=== PATIENT | female | born 1945 | race Caucasian/White ===

== ENCOUNTER 2021-03-24 02:54 | Inpatient (IN) | payer MEDICARE, OTHER ==
[~2021-03-24] VITALS: Ht 157 cm; Wt 47.4 kg
[2021-03-24 04:42] LABS: ABG BASE EXCESS 4.1 MMOL/L (-2.5-2.5); ABG OXYGEN SATURATION 99 % (94-100); ABG PCO2 71 MMHG (35-45); ABG PH 7.26 (7.37-7.43); ABG PO2 271 MMHG (79-93); ABG TCO2 32.8 MMOL/L (21.0-31.0)
[2021-03-24 04:45] LABS: ALLENS TEST ART LINE
[2021-03-24] MEDS ORDERED: PATIENT MAY USE OWN MEDS, ALL PO SCH (05:00)
--- NOTE | 2021-03-24 05:03 | Consultation-Cardiology ---
HPI-Cardiology Cardiology Consultation Date of Consultation 03/24/21 Date of Admission Time Seen by Provider: 04:57 Indication: Acute respiratory failure HPI 76-year-old lady with a history of COPD, anxiety, multiple admissions in the past in [facility] has been having increasing shortness of breath, cough. Went to the emergency room and noted to have EKG changes suggestive of myocardial infarction. She had a Covid test yesterday and it was negative. I was contacted and accepted her for emergency cardiac catheterization. On arrival she was severely short of breath. No active chest pain. No palpitation, reporting that she had a cardiac catheterization about 2 years ago in [facility] and it was normal. Home Medications & Allergies Allergies: Coded Allergies: No Known Drug Allergies (Unverified , 03/24/21) Home Medication List Reviewed: Yes PWS-Wdgldt-Ogsdzg Hx Patient Social History Employed/Student: retired Past Medical History Discussed below Family Medical History Family Medical Hx Noncontributory Review of Systems-General Review of Systems Constitutional: see HPI, malaise, weakness EENTM: see HPI, no symptoms reported Respiratory: see HPI, cough, dyspnea on exertion, orthopnea, short of breath Cardiovascular: see HPI; No chest pain, No edema, No Hx of Intervention, No palpitations, No syncope, No vascular heart diseas, No other Gastrointestinal: no symptoms reported, see HPI Genitourinary: no symptoms reported, see HPI Musculoskeletal: no symptoms reported, see HPI Skin: no symptoms reported, see HPI Psychiatric/Neurological: No Symptoms Reported, See HPI Reviewed Test Results Reviewed Test Results Lab Laboratory Tests Test 03/24/21 04:40 Range/Units Blood Gas Puncture Site SAMPLE SELECTOR Blood Gas Patient Temperature NA Arterial Blood pH 7.26 *L 7.37-7.43 Arterial Blood Partial Pressure CO2 71 *H 35-45 MMHG Arterial Blood Partial Pressure O2 271 H 79-93 MMHG Arterial Blood HCO3 31 H 23-27 MMOL/L Arterial Blood Total CO2 32.8 H 21.0-31.0 MMOL/L Arterial Blood Oxygen Saturation 99 94-100 % Arterial Blood Base Excess 4.1 H -2.5-2.5 MMOL/L Man Test ART LINE Blood Gas Ventilator Setting NA Blood Gas Inspired Oxygen NA Physical Exam Physical Exam Vital Signs Capillary Refill : Height, Weight, BMI Height: '" Weight: lbs. oz. kg; BMI Method: General Appearance: No Apparent Distress, WD/WN Eyes: Bilateral Eye Normal Inspection, Bilateral Eye PERRL, Bilateral Eye EOMI HEENT: PERRL/EOMI, TMs Normal, Normal ENT Inspection, Pharynx Normal, Moist Mucous Membranes Neck: Full Range of Motion, Normal Inspection, Non Tender, Supple, Carotid Bruit Respiratory: Normal Breath Sounds, No Accessory Muscle Use, No Respiratory Distress, Decreased Breath Sounds Cardiovascular: Regular Rate, Rhythm, No Edema, No Gallop, No JVD, No Murmur, Normal Peripheral Pulses Gastrointestinal: Normal Bowel Sounds, No Organomegaly, No Pulsatile Mass, Non Tender, Soft Back: Normal Inspection, No CVA Tenderness, No Vertebral Tenderness Extremity: Normal Capillary Refill, Normal Inspection, Normal Range of Motion, Non Tender, No Calf Tenderness, No Pedal Edema Neurologic/Psychiatric: Alert, Oriented x3, No Motor/Sensory Deficits, Normal Mood/Affect Skin: Normal Color, Warm/Dry Lymphatic: No Adenopathy A/P-Cardiology Admission Diagnosis Acute respiratory failure Congestive heart failure, acute left ventricular systolic dysfunction, nonischemic cardiomyopathy Coronary artery disease Hypertension Assessment/Plan Acute respiratory failure, acute exacerbation of COPD, CO2 retention. Patient will be managed by color matcher and medical service. EKG changes with ST elevation in the anterolateral leads, mild elevation in troponin. Does not have an acute myocardial infarction. Cardiac catheterization was carried out on March 24, 2021 showing mild coronary artery disease nonobstructive disease with left ventricular apical hypokinesia and ejection fraction 40%. Medical therapy is recommended. Has been maintained on Coreg and losartan as an outpatient which will be restarted. Coronary artery disease, cardiac catheterization on March 24, 2021 showed slow flow in the mid LAD, small vessel disease. 40 to 50% stenosis in the mid right coronary artery nonobstructive disease. Apical left ventricular hypokinesia with ejection fraction 40%, planning to evaluate 2D echo. 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 Hypothyroidism, maintained on levothyroxine Anxiety. Hyperglycemia blood glucose level was 154. Maintained on Accu-Chek, managed by primary care physician MERLIN SALES MD Mar 24, 2021 05:03
--- NOTE | 2021-03-24 05:07 | Conscious Sedation/ASA ---
Conscious Sedation Pre-Proced Time 04:00 ASA Score 3 For ASA 3 and 4: Consider anesthesia and medical clearance. Also, for patients with a history of failed moderate sedation consider anesthesia. Airway Lungs Heart ASA score ASA 1: a normal healthy patient ASA 2: a patient with a mild systemic disease (mid diabetes, controlled hypertension, obesity x ASA 3: a patient with a severe systemic disease that limits activity (angina, COPD, prior Myocardial infarction) ASA 4: a patient with an incapacitating disease that is a constant threat to life (CHF, renal failure) ASA 5: a moribund patient not expected to survive 24 hrs. (ruptured aneurysm) ASA 6: a declared brain- patient whose organs are being harvested. For emergent operations, add the letter E after the classification Mallampati Classification Grade 3 Sedation Plan Analgesia, Amnesia, Plan communicated to team members, Discussed options with patient/fam, Discussed risks with patient/fam The patient is an appropriate candidate to undergo the planned procedure, sedation, and anesthesia. The patient immediately re-assessed prior to indication. MERLIN SALSE MD Mar 24, 2021 05:07
--- NOTE | 2021-03-24 05:18 | Cardiac Cath Report ---
Cardiac Cath Report Physician (s)/Dial Painter (s) Physician MERLIN SALES MD Pre-Procedure Diagnosis Pre-Procedure Diagnosis: Coronary artery disease Post-Procedure Note Procedure Start Date: Mar 24, 2021 Name of Procedure: Left heart catheterization Left ventriculogram Aortic arch angiogram Findings/Procedure Note PROCEDURE NOTE: 76-year-old lady admitted with acute respiratory failure, EKG changes with elevated troponin, suspicious myocardial infarction, emergency cardiac catheterization was advised. After explaining the procedure to the patient, all pros and cons were explained, all questions were answered. The patient signed the consent and then she was placed on the cardiac catheterization laboratory. Groin was prepped SL fashion local anesthesia was used. Sheath placed in the right femoral artery. Juany right and left catheter were used to access the coronary system. Pigtail was used to access the left ventricular cavity. Left ventriculogram was done Aortic arch angiogram was done due to the heavy calcification in the aortic arch and tortuosity of the aortic arch that was noted At the end of the procedure the sheath was removed. Closure device was deployed FINDINGS: Hemodynamics LV 109/24, end-diastolic pressure of 24 Aorta 112/73 mean of 90 ANATOMY: Left Main is free of obstructive disease Left Anterior Descending has slow flow in the midportion, small vessel disease nonobstructive disease Left Circumflex has no significant obstructive disease Right Coronary Artery is large dominant artery with 40 to 50% stenosis at the midportion nonobstructive disease LV Gram was done showing apical hypokinesia, systolic function is reduced estimate ejection fraction 40 to 45% Aorta evaluation showed hypertensive changes in the thoracic aorta with c alcification, there is no dissection or aneurysm, calcification noted at the origin of the brachiocephalic artery, left subclavian and left carotid arteries CONCLUSION: 1. Slow flow in the mid LAD with small vessel disease, 40 to 50% stenosis at the mid right coronary artery nonobstructive disease otherwise no significant obstructive disease 2. Normal left ventricular size with apical hypokinesia, ejection fraction 40 to 45% with elevated left ventricular end-diastolic pressure 3. Hypertensive changes in the thoracic aorta, no dissection or aneurysm DISCUSSION AND RECOMMENDATION: Patient has nonischemic cardiomyopathy, probably Takotsubo cardiomyopathy, medical therapy is recommended. Anesthesia Type: Conscious Sedation Estimated blood loss (mL): 10 ml Contrast Amount: 68 ml Total Radiation Dose: 220 mGy Post-Procedure Diagnosis Post-operative diagnosis: Coronary artery disease Congestive heart failure Acute respiratory failure COPD MERLIN SALES MD Mar 24, 2021 05:17
[2021-03-24] MEDS: NS IV 1000 ML 1,000 ML IV SCH ×2 (05:35→15:41)
[2021-03-24] MEDS: methylPREDNISolone 125 MG (Solu-MEDROL) VIAL IVP SCH ×3 (05:37→19:06)
[2021-03-24 06:06] LABS: HEMATOCRIT 34 % (35-52); HEMOGLOBIN 11.2 g/dL (11.5-16.0); MEAN CORPUSCULAR HEMOGLOBIN 30 pg (25-34); MEAN CORPUSCULAR HGB CONC 33 g/dL (32-36); MEAN CORPUSCULAR VOLUME 92 fL (80-99); MEAN PLATELET VOLUME 9.7 fL (9.0-12.2); PLATELET COUNT 184 10^3/uL (130-400); WHITE BLOOD COUNT 9.6 10^3/uL (4.3-11.0)
[2021-03-24 06:22] LABS: ALBUMIN 3.4 GM/DL (3.2-4.5); POTASSIUM 4.2 MMOL/L (3.6-5.0)
[2021-03-24 06:23] LABS: CALCIUM 8.7 MG/DL (8.5-10.1)
[2021-03-24 06:26] LABS: BILIRUBIN,TOTAL 0.3 MG/DL (0.1-1.0)
[2021-03-24 06:28] LABS: CREATININE SERUM 0.75 MG/DL (0.60-1.30)
[2021-03-24 06:53] LABS: PHOSPHORUS 4.2 MG/DL (2.3-4.7)
[2021-03-24 06:55] LABS: MAGNESIUM 2.1 MG/DL (1.6-2.4)
[2021-03-24 08:55] LABS: BILIRUBIN,URINE NEGATIVE (NEGATIVE); CLARITY,URINE CLEAR; COLOR,URINE YELLOW; GLUCOSE, URINE (UA) NEGATIVE (NEGATIVE); KETONES,URINE NEGATIVE (NEGATIVE); LEUKOCYTE ESTERASE ,URINE NEGATIVE (NEGATIVE); NITRITE,URINE NEGATIVE (NEGATIVE); PROTEIN,URINE 1+ (NEGATIVE)
[2021-03-24 09:06] LABS: BACTERIA,URINE FEW /HPF
[2021-03-24] MEDS: LOSARTAN 50 MG (COZAAR) TAB PO SCH (09:26)
[2021-03-24] MEDS: ASPIRIN E.C. 81 MG (ECOTRIN) TAB PO SCH (09:26)
[2021-03-24] MEDS: ENOXAPARIN 40 MG/0.4 ML (LOVENOX) SYR SQ SCH (09:27)
[2021-03-24] MEDS: LEVOTHYROXINE 75 MCG (LEVOTHROID) TABLET PO SCH (09:27)
[2021-03-24] MEDS: PANTOPRAZOLE 40 MG (PROTONIX) TAB PO SCH (09:27)
--- NOTE | 2021-03-24 10:17 | Tele-ICU Progress Note ---
Subjective Date Seen by a Provider: Mar 24, 2021 Time Seen by a Provider: 08:45 Subjective/Events-last exam This virtual visit was conducted using real time audio/video. Thank you for asking us to see this patient for respiratory insufficiency and suspected CT. Recent events: Cath showed non-obstructive CAD, for medical management. PMH: COPD, anxiety SH: smoking history Y FH: Non-contributory. PE: VSS. O2 sat 100% on 2 LPM NC. HEENT: No obvious masses, adenopathy or JVD. Chest: clear to auscultation. CV: RRR S1 S2 No murmur or added sounds. Abd: Non-tender. Bowel sounds Y. : Unremarkable. Thorpe N. NEWSPAPER MANAGER/psychiatric: Grossly intact. No obvious focal findings. Extremities: No edema. Capillary refill < 3 seconds. Skin: unremarkable. Results: Elevated Troponin 0.718. B.26/71/271 Available chart/ vitals / labs / images reviewed. Video assessment done using teleICU camera, rest of exam as per RN. A/P: Respiratory insufficiency: Continue present management with BDs, NC. OK to transfer. Monitor for increasing oxygenation needs and/or need for intubation. Critical Care: Cont. Medrol, BDs, ASA, Coreg, PPI, Silvana. Discussed with RN Purvi. Asked RN to reach out to eICU if any questions or con cerns later. Time spent with patient/coordination of care with other health professionals (mins): 20 Sepsis Event Evaluation Height, Weight, BMI Height: '" Weight: lbs. oz. kg; 20.36 BMI Method: Exam Exam Patient acknowledged, consented, and participated in this virtual visit which was conducted using real time audio/video Vital Signs Date Time Temp Pulse Resp B/P (MAP) Pulse Ox O2 Delivery O2 Flow Rate FiO2 03/24/21 09:00 112 27 176/90 91 Nasal Cannula 2.00 03/24/21 08:00 100 25 108/88 100 Nasal Cannula 2.00 03/24/21 08:00 36.8 03/24/21 07:00 93 22 111/76 100 Nasal Cannula 2.00 03/24/21 07:00 98 03/24/21 06:30 93 17 119/81 100 Nasal Cannula 2.00 03/24/21 06:00 85 20 110/76 99 Nasal Cannula 2.00 03/24/21 05:46 Nasal Cannula 2.00 03/24/21 05:45 96 20 94/66 100 Nasal Cannula 2.00 03/24/21 05:32 94 03/24/21 05:30 101 26 104/78 100 Nasal Cannula 2.00 03/24/21 05:14 36.4 102 21 106/79 100 Nasal Cannula 2.00 Height & Weight Height: '" Weight: lbs. oz. kg; 20.36 BMI Method: General Appearance: No Apparent Distress, WD/WN HEENT: PERRL/EOMI, TMs Normal, Normal ENT Inspection, Pharynx Normal, Moist Mucous Membranes Neck: Full Range of Motion, Normal Inspection, Non Tender, Supple, Carotid Bruit Respiratory: Normal Breath Sounds, No Accessory Muscle Use, No Respiratory Distress, Decreased Breath Sounds Cardiovascular: Regular Rate, Rhythm, No Edema, No Gallop, No JVD, No Murmur, Normal Peripheral Pulses Capillary Refill: Less Than 3 Seconds Peripheral Pulses: 1+ Dorsalis Pedis (R), 1+ Left Dors-Pedis (L) (See free text) Extremity: Normal Capillary Refill, Normal Inspection, Normal Range of Motion, Non Tender, No Calf Tenderness, No Pedal Edema Neurologic/Psychiatric: Alert, Oriented x3, No Motor/Sensory Deficits, Normal Mood/Affect Skin: Normal Color, Warm/Dry Lymphatic: No Adenopathy Results Lab Laboratory Tests 03/24/21 05:41 Assessment/Plan Assessment/Plan See free text Critical Care: Critically Ill Patient VERONICA CHAIDEZ MD Mar 24, 2021 10:17
[2021-03-24] MEDS ORDERED: FUROSEMIDE 40 MG/4 ML INJ (LASIX) IVP ONE (11:30)
--- NOTE | 2021-03-24 13:17 | History & Physical-Hospitalist ---
ANAM SOLORZANO 03/24/21 1317: History of Present Illness HPI/Chief Complaint The patient is a 76 YO female with a Hx of COPD, and hypothyroidism, who is admitted to the ICU for complaints of shortness of breath. The patient reports that last night she experienced difficulties breathing, and described the feeling as a tightness in her airway. She presented to the emergency room in [place], where she was found to have ST segment elevations on EKG. She was airlifted to [place]. She underwent emergency cardiac catheterization by Dr. Guidry, who did not find any acute coronary blockages, and the diagnoses of Takotsobu cardiomyopathy was made. The patient denied chest pain or any other complaints of pain with her breathing difficultly. She currently reports some difficulties with breathing. She reports smoking cigarettes for 4-5 years, 1-2 packs per day, and quit 10-15 years ago. She reports experiencing worsening stress in her life related to her job which she was let go from about 1 month ago. She is fully vaccinated against COVID-19 (without a booster), and reports having COVID in February of 2020. Date Seen 03/24/21 Time Seen by a Provider: 09:30 Attending Physician Yasmin Copeland MD PCP No,Local Physician Referring Physician Date of Admission Mar 24, 2021 at 04:23 Home Medications & Allergies Home Medications Reviewed patient Home Medication Reconciliation performed by pharmacy medication reconciliations corn lab technician and/or nursing. Patients Allergies have been reviewed. Allergies Allergies Coded Allergies No Known Drug Allergies ([id number]/12/21) Past Cuhwefp-Kcppbq-Jajybv Hx Patient Social History Marrital Status: Employed/Student: retired Tobacco Use?: No Smoking Status: Former Smoker Use of E-Cig and/or Vaping dev: No Substance use?: No Alcohol Use?: No Immunizations Up To Date Date of Influenza Vaccine: Feb 22, 2021 Past Medical History COPD Hypothyroidsim Review of Systems Constitutional: No chills, No diaphoresis, No fever EENTM: No blurred vision Respiratory: short of breath Cardiovascular: No chest pain, No edema, No palpitations Gastrointestinal: No abdominal pain, No nausea, No vomiting Genitourinary: no symptoms reported Musculoskeletal: no symptoms reported Skin: No change in color, No rash Psychiatric/Neurological: Denies Headache, Denies Numbness, Denies Weakness Physical Exam Physical Exam Vital Signs Vital Signs - First Documented 03/24/21 05:14 Temp 36.4 Pulse 102 Resp 21 B/P (MAP) 106/79 Pulse Ox 100 O2 Delivery Nasal Cannula O2 Flow Rate 2.00 Capillary Refill : Less Than 3 Seconds Height, Weight, BMI Height: '" Weight: lbs. oz. kg; 20.36 BMI Method: General Appearance: No Apparent Distress, Chronically ill Eyes: Bilateral Eye Normal Inspection, Bilateral Eye PERRL, Bilateral Eye EOMI HEENT: PERRL/EOMI, Pharynx Normal, Moist Mucous Membranes Respiratory: Chest Non Tender, Lungs Clear, Normal Breath Sounds, Accessory Muscle Use Cardiovascular: Regular Rate, Rhythm, No Edema, No Murmur, Normal Peripheral Pulses Gastrointestinal: Normal Bowel Sounds, No Organomegaly, No Pulsatile Mass, Non Tender, Soft Extremity: No Calf Tenderness, No Pedal Edema Neurologic/Psychiatric: Alert, Oriented x3, No Motor/Sensory Deficits, Normal Mood/Affect Skin: Normal Color, Warm/Dry Results Results/Procedures Labs Laboratory Tests 03/24/21 05:41 Patient resulted labs reviewed. Assessment/Plan Assessment and Plan 76 YO female admitted with shortness of breath secondary COPD exacerbation, and Takotsobu cardiomyopathy. Hx of Hypothyroidism and former tobacco use (smoking) and second hand smoke exposure. COPD exacerbation Continue Solu-Medrol injections Q6 hr. Start Duoneb therapy. Takotsobu cardiomyopathy Cardiology managing. Continue Carvedilol, Asprin and Losartan. Hypothyriodism Continue Levothyroxine. DVT prophylaxis Lovenox 40mg Q24H YASMIN COPELAND MD 03/24/211953: History of Present Illness Source: patient, RN/MD Exam Limitations: no limitations Time Seen by a Provider: 10:45 Past Xheqbgo-Vbexkj-Dfgumk Hx Past Medical History COPD Hypertension Hypothyroidsim Anxiety, Depression Family Medical History No Pertinent Family Hx Physical Exam Physical Exam General Appearance: Chronically ill, Mild Distress (tachypnea), Thin HEENT: PERRL/EOMI, Pharynx Normal Neck: Normal Inspection, Supple Respiratory: Decreased Breath Sounds, Respiratory Distress (tachypnea) Cardiovascular: No Murmur, Tachycardia Gastrointestinal: Normal Bowel Sounds, Non Tender, Soft; No Distended Extremity: Normal Inspection, Non Tender, No Pedal Edema Neurologic/Psychiatric: Alert, Oriented x3 Skin: Normal Color, Warm/Dry Results Results/Procedures Imaging: Reviewed Imaging Report Assessment/Plan Admission Diagnosis STEMI Admission Status: Inpatient Order (span 2 midnights) Reason for Inpatient Admission: Respiratory failure Assessment and Plan Admitted with STEMI. Taken to laboratory secretary without evidence of CAD. Showed evidence of apical ballooning consistent with Takotsubo (stress induced cardiomyopathy). Started on steroids and breathing treatments for COPD exacerbation. Critical Care Critically Ill Patient Diagnosis/Problems Diagnosis/Problems (1) COPD with acute exacerbation Status: Acute (2) Acute respiratory failure with hypoxia Status: Acute (3) Takotsubo cardiomyopathy Status: Acute (4) NICM (nonischemic cardiomyopathy) Status: Acute (5) Anxiety and depression Status: Acute (6) HTN (hypertension) Status: Chronic (7) Hypothyroidism Status: Chronic Supervisory-Addendum Brief Verification & Attestation Participated in pt care: history, MDM, physical Personally performed: exam, history, MDM, supervision of care Care discussed with: Medical Student Procedures: n/a Results interpretation: Verified all documentation A medical student performed and documented this service in my presence. I reviewed and verified all information documented by the medical student and made modifications to such information, when appropriate. I personally performed the physical exam and medical decision making. ANAM SOLORZANO Mar 24, 2021 13:17 YASMIN COPELAND MD Mar 24, 2021 19:54
--- NOTE | 2021-03-24 16:32 | Diagnostic Imaging Report ---
EXAMINATION: Chest 1 view. HISTORY: Short of breath. COMPARISON: None available. FINDINGS: Lungs are hyperinflated. There is mild edema. No pneumothorax. No pleural effusion. Heart size is normal. IMPRESSION: Hyperinflated lungs with mild edema. Dictated by: Dictated on workstation # [id number]
[2021-03-25] MEDS: methylPREDNISolone 125 MG (Solu-MEDROL) VIAL IVP SCH ×2 (00:09→06:30)
[2021-03-25] MEDS: NS IV 1000 ML 1,000 ML IV SCH (00:14)
[2021-03-25 04:45] LABS: HEMATOCRIT 34 % (35-52); HEMOGLOBIN 11.3 g/dL (11.5-16.0); MEAN CORPUSCULAR HEMOGLOBIN 30 pg (25-34); MEAN CORPUSCULAR HGB CONC 33 g/dL (32-36); MEAN CORPUSCULAR VOLUME 89 fL (80-99); MEAN PLATELET VOLUME 9.9 fL (9.0-12.2); PLATELET COUNT 186 10^3/uL (130-400); WHITE BLOOD COUNT 12.9 10^3/uL (4.3-11.0)
[2021-03-25 05:00] LABS: POTASSIUM 3.9 MMOL/L (3.6-5.0)
[2021-03-25 05:01] LABS: CALCIUM 9.3 MG/DL (8.5-10.1)
[2021-03-25 05:05] LABS: CREATININE SERUM 0.84 MG/DL (0.60-1.30)
[2021-03-25 06:25] LABS: PHOSPHORUS 3.2 MG/DL (2.3-4.7)
[2021-03-25] MEDS: LEVOTHYROXINE 75 MCG (LEVOTHROID) TABLET PO SCH (06:30)
[2021-03-25] MEDS: ENOXAPARIN 40 MG/0.4 ML (LOVENOX) SYR SQ SCH (06:30)
[2021-03-25] MEDS: PANTOPRAZOLE 40 MG (PROTONIX) TAB PO SCH (06:30)
--- NOTE | 2021-03-25 07:02 | Diagnostic Imaging Report ---
INDICATION: Shortness of breath COMPARISON: 03/24/2011 FINDINGS: Frontal and lateral views of the chest demonstrate continued hyperinflation with trace bilateral pleural effusions. Overall, there is improved aeration of both lungs. There is no pneumothorax. The heart size is stable. IMPRESSION: Improved aeration. Dictated by: Dictated on workstation # [id number]
[2021-03-25] MEDS: LOSARTAN 50 MG (COZAAR) TAB PO SCH (08:16)
[2021-03-25] MEDS: ASPIRIN E.C. 81 MG (ECOTRIN) TAB PO SCH (08:16)
--- NOTE | 2021-03-25 09:51 | Cardiology Progress Note ---
Subjective Date Seen by Provider: Mar 25, 2021 Time Seen by Provider: 09:49 Subjective/Events-last exam Patient is laying down in bed, still having some shortness of breath. Overall reporting improvement Review of Systems General: No Chills, No Night Sweats; Fatigue, Malaise; No Appetite, No Other HEENT: No Head Aches, No Visual Changes, No Eye Pain, No Ear Pain, No Dysphasia, No Sinus Congestion, No Post Nasal Drip, No Sore Throat, No Other Pulmonary: Dyspnea; No Cough, No Pleuritic Chest Pain, No Other Cardiovascular: No: Chest Pain, Palpitations, Orthopnea, Paroxysmal Noc. Dyspnea, Edema, Lt Headedness, Other Objective-Cardiology Exam Last Set of Vital Signs Vital Signs 03/25/21 03/25/21 08:00 08:15 Temp 37.3 Pulse 87 Resp 20 B/P (MAP) 101/63 Pulse Ox 94 O2 Delivery Nasal Cannula O2 Flow Rate 2.00 I&O Intake and Output 03/24/21 23:59 Intake Total 540 ml Output Total 775 ml Balance -235 ml Intake Oral 540 ml Output Urine Total 775 ml # Urine Diapers 2 General: Alert, Oriented X3, Cooperative HEENT: Atraumatic, PERRLA Neck: Supple, No JVD, No Thyromegaly Lungs: Clear to Auscultation, Normal Air Movement Heart: Regular Rate, Normal S1, Normal S2, No Murmurs Abdomen: Normal Bowel Sounds, Soft, No Tenderness, No Hepatosplenomegaly, No Masses Extremities: No Clubbing, No Cyanosis, No Edema, Normal Pulses, No Tenderness/Swelling Skin: No Rashes, No Breakdown, No Significant Lesion Neuro: Normal Gait, Normal Speech, Strength at 5/5 X4 Ext, Normal Tone, Sensation Intact Psych/Mental Status: Mental Status NL, Mood NL Results Lab Laboratory Tests 03/25/21 04:36 A/P-Cardiology Admission Diagnosis Acute respiratory failure Congestive heart failure, acute left ventricular systolic dysfunction, nonischemic cardiomyopathy Coronary artery disease Hypertension Assessment/Plan Acute respiratory failure, acute exacerbation of COPD, CO2 retention. Patient will be managed by yarn examiner skeins and medical service. EKG changes with ST elevation in the anterolateral leads, mild elevation in troponin. Does not have an acute myocardial infarction. Cardiac catheterization was carried out on March 24, 2021 showing mild coronary art yolanda disease nonobstructive disease with left ventricular apical hypokinesia and ejection fraction 40%. Medical therapy is recommended. Has been maintained on Coreg and losartan as an outpatient which will be restarted. Coronary artery disease, cardiac catheterization on March 24, 2021 showed s low flow in the mid LAD, small vessel disease. 40 to 50% stenosis in the mid right coronary artery nonobstructive disease. Apical left ventricular hypokinesia with ejection fraction 40%, planning to evaluate 2D echo. 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 Planning to place a LifeVest for primary prevention Hypothyroidism, maintained on levothyroxine Anxiety. Hyperglycemia blood glucose level was 154. Maintained on Accu-Chek, managed by primary care physician Ericka for discharge from cardiology standpoint once her pulmonary status is stable, follow-up as an outpatient MERLIN SALES MD Mar 25, 2021 09:51
[2021-03-25] MEDS ORDERED: LORazepam 0.5 MG (ATIVAN) TABLET PO ONE (10:00)
[2021-03-25] MEDS ORDERED: diphenhydrAMINE 25 MG TAB (BENADRYL) PO PRN (10:00)
[2021-03-25] MEDS ORDERED: CALCIUM CARBONATE 500 MG (TUMS) TAB.CHEW PO PRN (10:00)
[2021-03-25] MEDS ORDERED: HYDROcodone/APAP 5 MG/325 MG (LORTAB) TAB PO PRN (10:00)
[2021-03-25] MEDS ORDERED: MELATONIN 3 MG TABLET PO PRN (10:00)
[2021-03-25] MEDS ORDERED: ONDANSETRON 4 MG/2 ML (SDV) Z0FRAN IVP PRN (10:00)
[2021-03-25] MEDS ORDERED: DOCUSATE SODIUM 100 MG (COLACE) CAP PO PRN (10:00)
[2021-03-25] MEDS ORDERED: ACETAMINOPHEN 325 MG TABLET PO PRN (10:15)
[2021-03-25] MEDS ORDERED: BUDE10.2 IH (10:17)
[2021-03-25] MEDS ORDERED: PARO10TA3 PO (10:18)
[2021-03-25] MEDS ORDERED: MONT-40 PO (10:18)
[2021-03-25] MEDS ORDERED: CARV6.252 PO (10:20)
[2021-03-25] MEDS ORDERED: PANT40TA52 PO (10:20)
[2021-03-25] MEDS ORDERED: PRED10TA22 PO (10:20)
[2021-03-25] MEDS ORDERED: ASPI-1238 PO (10:20)
[2021-03-25] MEDS ORDERED: LOSA50TA63 PO (10:20)
[2021-03-25] MEDS ORDERED: LEVO75TA PO (10:20)
[2021-03-25] MEDS ORDERED: ALPR0.5T PO (10:20)
--- NOTE | 2021-03-25 10:21 | Discharge Summary ---
Discharge Summary Hospital Course Was the Problem List Reviewed?: Yes Problems/Dx: (1) COPD with acute exacerbation Status: Acute (2) Acute respiratory failure with hypoxia Status: Acute (3) Takotsubo cardiomyopathy Status: Acute (4) NICM (nonischemic cardiomyopathy) Status: Acute (5) Anxiety and depression Status: Acute (6) HTN (hypertension) Status: Chronic (7) Hypothyroidism Status: Chronic Hospital Course Date of Admission: Mar 24, 2021 at 04:23 Admission Diagnosis : Family Physician/Provider: No,Local Physician Date of Discharge: 03/25/21 Discharge Diagnosis: Ischemic cardiomyopathy, wheezing, asthma, anxiety Hospital Course: Hospital Course: Pt had a brief hospital course when she was admitted for acute respiratory distress and what appeared to be a STEMI. She was taken to [facility] systems laboratory director emergently, was found to have no coronary stenosis, so it appeared that she will need a life vest for Takotsubo condition and all her medications were sent in to the pharmacy. Labs and Pending Lab Test: Laboratory Tests 03/25/21 04:36: White Blood Count 12.9H, Red Blood Count 3.83, Hemoglobin 11.3L, Hematocrit 34L, Mean Corpuscular Volume 89, Mean Corpuscular Hemoglobin 30, Mean Corpuscular Hemoglobin Concent 33, Red Cell Distribution Width 13.1, Platelet Count 186, Mean Platelet Volume 9.9, Sodium Level 132L, Potassium Level 3.9, Chloride Level 97L, Carbon Dioxide Level 26, Anion Gap 9, Blood Urea Nitrogen 21H, Creatinine 0.84, Estimat Glomerular Filtration Rate 66, BUN/Creatinine Ratio 25, Glucose Level 205H, Calcium Level 9.3, Phosphorus Level 3.2, Magnesium Level 2.0 Microbiology 03/24/21 MRSA Screen - Final, Complete MRSA not isolated Home Meds Active Xanax (Alprazolam) 0.5 Mg Tablet 0.5 Mg PO Q6H PRN Prednisone 10 Mg Tab.ds.pk 10 Mg PO DAILY Take 6 tabs(60mg)daily,decrease by 1 tab(10MG)daily. Synthroid (Levothyroxine Sodium) 75 Mcg Tablet 75 Mcg PO DAILY@0630 365 Days Pantoprazole Sodium 40 Mg Tablet.dr 40 Mg PO DAILY@0700 Aspirin EC (Aspirin) 81 Mg Tablet.dr 81 Mg PO DAILY Losartan Potassium 50 Mg Tablet 50 Mg PO DAILY Carvedilol 6.25 Mg Tablet 6.25 Mg PO BID WITH MEALS Reported Paroxetine HCl 10 Mg Tablet 10 Mg PO DAILY Montelukast Sodium 10 Mg Tablet 10 Mg PO HS Symbicort 160-4.5 Mcg Inhaler (Budesonide/Formoterol Fumarate) 10.2 Gm Hfa.aer.ad 2 Puff IH BID Assessment/Pt Instructions PCP in 1 week Discharge Planning: <30 minutes discharge planning Discharge Instructions Discharge Diet: No Restrictions Activity as Tolerated: Yes Discharge Physical Examination Vital Signs Vital Signs Date Time Temp Pulse Resp B/P (MAP) Pulse Ox O2 Delivery O2 Flow Rate FiO2 03/25/21 10:00 89 56 120/80 97 Nasal Cannula 2.00 03/25/21 08:00 37.3 General Appearance: No Apparent Distress, WD/WN, Anxious, Chronically ill Respiratory: Lungs Clear, No Accessory Muscle Use, No Respiratory Distress, Decreased Breath Sounds Cardiovascular: Regular Rate, Rhythm Neurologic/Psychiatric: Alert, Oriented x3, No Motor/Sensory Deficits, Normal Mood/Affect Allergies: Coded Allergies: No Known Drug Allergies (Unverified , 03/24/21) Discharge Summary Date of Admission Mar 24, 2021 at 04:23 Date of Discharge Discharge Date: Mar 25, 2021 Admission Diagnosis STEMI Discharge Diagnosis (1) COPD with acute exacerbation Status: Acute (2) Acute respiratory failure with hypoxia Status: Acute (3) Takotsubo cardiomyopathy Status: Acute (4) NICM (nonischemic cardiomyopathy) Status: Acute (5) Anxiety and depression Status: Acute (6) HTN (hypertension) Status: Chronic (7) Hypothyroidism Status: Chronic LISA VIERA DO Mar 25, 2021 10:21
--- NOTE | 2021-03-25 11:52 | Tele-ICU Progress Note ---
Subjective Date Seen by a Provider: Mar 25, 2021 Time Seen by a Provider: 10:02 Sepsis Event Evaluation Height, Weight, BMI Height: '" Weight: lbs. oz. kg; 20.36 BMI Method: Exam Exam Patient acknowledged, consented, and participated in this virtual visit which was conducted using real time audio/video Vital Signs Date Time Temp Pulse Resp B/P (MAP) Pulse Ox O2 Delivery O2 Flow Rate FiO2 03/25/21 11:30 36.8 03/25/21 10:00 89 56 120/80 97 Nasal Cannula 2.00 03/25/21 09:45 84 18 98 Nasal Cannula 2.00 03/25/21 09:30 87 21 97 Nasal Cannula 2.00 03/25/21 09:15 90 25 99 Nasal Cannula 2.00 03/25/21 09:00 80 19 107/70 97 Nasal Cannula 2.00 03/25/21 08:45 85 22 98 Nasal Cannula 2.00 03/25/21 08:30 78 19 99 Nasal Cannula 2.00 03/25/21 08:15 87 20 94 Nasal Cannula 2.00 03/25/21 08:00 Nasal Cannula 2.00 03/25/21 08:00 75 18 101/63 99 Nasal Cannula 2.00 03/25/21 08:00 37.3 03/25/21 07:45 78 19 98 Nasal Cannula 2.00 03/25/21 07:30 84 26 99 Nasal Cannula 2.00 03/25/21 07:15 70 16 99 Nasal Cannula 2.00 03/25/21 07:00 74 17 105/59 99 Nasal Cannula 2.00 03/25/21 07:00 85 03/25/21 06:00 89 23 95 Nasal Cannula 2.00 03/25/21 05:00 76 19 90/68 98 Nasal Cannula 2.00 03/25/21 04:00 78 33 100/74 93 Nasal Cannula 2.00 03/25/21 04:00 Nasal Cannula 2.00 03/25/21 03:00 79 16 86/68 93 Nasal Cannula 2.00 03/25/21 02:00 72 21 92/64 98 Nasal Cannula 2.00 03/25/21 01:00 70 18 84/53 99 Nasal Cannula 2.00 03/25/21 01:00 70 03/25/21 00:16 Nasal Cannula 2.00 03/25/21 00:16 36.4 03/25/21 00:00 75 12 88/58 99 Nasal Cannula 2.00 03/24/21 23:00 77 95/63 99 Nasal Cannula 2.00 03/24/21 22:00 72 18 84/53 99 Nasal Cannula 2.00 03/24/21 21:00 81 30 93/64 92 Nasal Cannula 2.00 03/24/21 20:00 79 20 94/69 99 Nasal Cannula 2.00 03/24/21 20:00 36.7 03/24/21 19:22 Nasal Cannula 2.00 03/24/21 19:17 89 24 95/65 96 Nasal Cannula 2.00 03/24/21 19:00 88 03/24/21 18:00 77 20 95/64 98 Nasal Cannula 2.00 03/24/21 17:01 98 Nasal Cannula 2.00 03/24/21 17:00 88 35 95/65 97 Nasal Cannula 2.00 03/24/21 16:43 36.6 03/24/21 16:00 Nasal Cannula 2.00 03/24/21 16:00 83 23 100 Nasal Cannula 2.00 03/24/21 15:00 84 23 91/65 98 Nasal Cannula 2.00 03/24/21 14:00 87 14 92/78 98 Nasal Cannula 2.00 03/24/21 13:00 75 14 81/58 100 Nasal Cannula 2.00 03/24/21 12:50 83 03/24/21 12:00 92 25 102/80 100 Nasal Cannula 2.00 03/24/21 12:00 36.7 03/24/21 12:00 Nasal Cannula 2.00 I & O 03/25/21 07:00 Intake Total 1320 ml Output Total 775 ml Balance 545 ml Height & Weight Height: '" Weight: lbs. oz. kg; 20.36 BMI Method: General Appearance: Chronically ill, Mild Distress (tachypnea), Thin HEENT: PERRL/EOMI, Pharynx Normal Neck: Normal Inspection, Supple Respiratory: Decreased Breath Sounds, Respiratory Distress (tachypnea) Cardiovascular: No Murmur, Tachycardia Capillary Refill: Less Than 3 Seconds Peripheral Pulses: 1+ Dorsalis Pedis (R), 1+ Left Dors-Pedis (L) (See free text) Extremity: Normal Inspection, Non Tender, No Pedal Edema Neurologic/Psychiatric: Alert, Oriented x3 Skin: Normal Color, Warm/Dry Lymphatic: No Adenopathy Results Lab Laboratory Tests 03/24/21 05:41 03/25/21 04:36 Assessment/Plan Assessment/Plan (Tele-ICU Physician , Progress Note ) Available chart/ vitals / labs / Images reviewed Video assessment done using teleICU camera, rest of exam as per RN Discussed with RN , EXAM PER RN Events vernight : Afebrile FiO2 - nc I/O = Drips: Pressors: , hemodynamically stable Consultants: Hospital course: A/P Acute resp distress - on NC now AECOPD - steroids - to chnager to po ? nebs - needs PFT pulm HTN - ?etiology - ? nocturnal hypoxia CAD, EF 45% - Takotsubo cardiomyopathy. - a sper cards Plans in collaboration with bedside consultants and IM MDs. Discussed with RN to reach out if any questions or concerns A total of 20 minutes of critical care time was devoted to this patient today, required to treat and/or prevent further deterioration of critical care condition ( as above) . RAQUEL AC MD Mar 25, 2021 11:52
--- NOTE | 2021-03-25 11:58 | Pulmonary Progress Note ---
OKSANA LACKEY 03/25/21 1158: Subjective Subjective/Events-last exam The patient is resting comfortably this morning but does note that she is anxious. She states that her breathing has improved since admission and she has no other complaints at this time. Review of Systems General: No Chills, No Night Sweats HEENT: No Head Aches, No Visual Changes Pulmonary: No Dyspnea, No Cough Cardiovascular: No: Chest Pain, Palpitations Gastrointestinal: No: Nausea, Vomiting, Abdominal Pain Genitourinary: No Dysuria Musculoskeletal: No: other, neck pain, shoulder pain, arm pain, back pain, hand pain, leg pain, foot pain Neurological: No: Weakness, Numbness, Incoordination, Change in speech, Seizures Exam Exam Patient acknowledged, consented, and participated in this virtual visit which was conducted using real time audio/video Vital Signs Date Time Temp Pulse Resp B/P (MAP) Pulse Ox O2 Delivery O2 Flow Rate FiO2 03/25/21 11:30 36.8 03/25/21 10:00 89 56 120/80 97 Nasal Cannula 2.00 03/25/21 09:45 84 18 98 Nasal Cannula 2.00 03/25/21 09:30 87 21 97 Nasal Cannula 2.00 03/25/21 09:15 90 25 99 Nasal Cannula 2.00 03/25/21 09:00 80 19 107/70 97 Nasal Cannula 2.00 03/25/21 08:45 85 22 98 Nasal Cannula 2.00 03/25/21 08:30 78 19 99 Nasal Cannula 2.00 03/25/21 08:15 87 20 94 Nasal Cannula 2.00 03/25/21 08:00 Nasal Cannula 2.00 03/25/21 08:00 75 18 101/63 99 Nasal Cannula 2.00 03/25/21 08:00 37.3 03/25/21 07:45 78 19 98 Nasal Cannula 2.00 03/25/21 07:30 84 26 99 Nasal Cannula 2.00 03/25/21 07:15 70 16 99 Nasal Cannula 2.00 03/25/21 07:00 74 17 105/59 99 Nasal Cannula 2.00 03/25/21 07:00 85 03/25/21 06:00 89 23 95 Nasal Cannula 2.00 03/25/21 05:00 76 19 90/68 98 Nasal Cannula 2.00 03/25/21 04:00 78 33 100/74 93 Nasal Cannula 2.00 03/25/21 04:00 Nasal Cannula 2.00 03/25/21 03:00 79 16 86/68 93 Nasal Cannula 2.00 03/25/21 02:00 72 21 92/64 98 Nasal Cannula 2.00 03/25/21 01:00 70 18 84/53 99 Nasal Cannula 2.00 03/25/21 01:00 70 03/25/21 00:16 Nasal Cannula 2.00 03/25/21 00:16 36.4 03/25/21 00:00 75 12 88/58 99 Nasal Cannula 2.00 03/24/21 23:00 77 95/63 99 Nasal Cannula 2.00 03/24/21 22:00 72 18 84/53 99 Nasal Cannula 2.00 03/24/21 21:00 81 30 93/64 92 Nasal Cannula 2.00 03/24/21 20:00 79 20 94/69 99 Nasal Cannula 2.00 03/24/21 20:00 36.7 03/24/21 19:22 Nasal Cannula 2.00 03/24/21 19:17 89 24 95/65 96 Nasal Cannula 2.00 03/24/21 19:00 88 03/24/21 18:00 77 20 95/64 98 Nasal Cannula 2.00 03/24/21 17:01 98 Nasal Cannula 2.00 03/24/21 17:00 88 35 95/65 97 Nasal Cannula 2.00 03/24/21 16:43 36.6 03/24/21 16:00 Nasal Cannula 2.00 03/24/21 16:00 83 23 100 Nasal Cannula 2.00 03/24/21 15:00 84 23 91/65 98 Nasal Cannula 2.00 03/24/21 14:00 87 14 92/78 98 Nasal Cannula 2.00 03/24/21 13:00 75 14 81/58 100 Nasal Cannula 2.00 03/24/21 12:50 83 03/24/21 12:00 92 25 102/80 100 Nasal Cannula 2.00 03/24/21 12:00 36.7 03/24/21 12:00 Nasal Cannula 2.00 I & O 03/25/21 07:00 Intake Total 1320 ml Output Total 775 ml Balance 545 ml Height & Weight Height: '" Weight: lbs. oz. kg; 20.36 BMI Method: General Appearance: Chronically ill, Mild Distress (tachypnea), Thin HEENT: PERRL/EOMI, Pharynx Normal Neck: Normal Inspection, Supple Respiratory: Decreased Breath Sounds Cardiovascular: No Murmur, Tachycardia Capillary Refill: Less Than 3 Seconds Peripheral Pulses: 1+ Dorsalis Pedis (R), 1+ Left Dors-Pedis (L) (See free text) Extremity: Normal Inspection, Non Tender, No Pedal Edema Neurologic/Psychiatric: Alert, Oriented x3 Skin: Normal Color, Warm/Dry Lymphatic: No Adenopathy Results Lab Laboratory Tests 03/24/21 05:41 03/25/21 04:36 Assessment/Plan Assessment/Plan Acute respiratory distress - Saturating well on 2 L NC AECOPD - ICS and nebulizers CAD, EF 45% - Takotsubo cardiomyopathy likely per cardiology . - Heart failure medications per cardiology RAQUEL AC MD 03/29/21 1430: Subjective Date Seen by a Provider: Mar 25, 2021 Time Seen by a Provider: 11:00 Supervisory-Addendum Brief Verification & Attestation Participated in pt care: history, MDM, physical Personally performed: exam, history, MDM, supervision of care Care discussed with: Medical Student Procedures: n/a Results interpretation: Verified all documentation A medical student performed and documented this service. I reviewed information documented by the medical student . Medical student performed patients physical exam . Medical decision making was done during tele-rounds with this medical student and a bedside RN . Please see my notes for details /clarification of assessment and plans OKSANA LACKEY Mar 25, 2021 11:58 RAQUEL AC MD Mar 29, 2021 14:30
[2021-03-25] MEDS: methylPREDNISolone 40 MG/ML (Solu-MEDROL) VIAL IV SCH ×3 (12:48→23:29)
--- NOTE | 2021-03-25 13:45 | Progress Note ---
HARIS CASTELLANOS 03/25/21 1345: Progress Note Patient is a 76 year old female with a history of COPD who presents to [facility] on 03/24 from [facility]. She was transferred via life-flight after she was found to have ST segment elevations on EKG, signs of acute respiratory failure, and acute exacerbations of COPD. She underwent emergency catheterization by Dr. Guidry and was not found to have any acute findings of myocardial infarction. The catheterization did show signs of nonischemic cardiomyopathy, with takotsubo cardiomyopathy (stress induced cardiomyopathy) being the probable cause. Patient also underwent a 2D echocardiogram which had the following findings. Left ventricle ejection fractions 25-30% with severe diffuse hypokinesis. Akinesis of the apical myocardium. Mild regurgitation of the mitral valve. Moderate to severe regurgitation of the tricuspid valve. Systolic pressure of pulmonary arteries in the range of 55-60 mm Hg. Patient was found to be COVID negative. Patient was started on methylprednisolone and fluticasone/salmeterol for her acute respiratory failure. Patient had a chest x-ray that showed hyper-inflated lungs with mild edema, with no pneumothorax or pleural effusion. Patient continued home medications on 03/24. On 03/25 patient was doing much better. Her O2 sats were stable on 2L of oxygen via nasal cannula. She no longer felt short of breath. Her repeat chest x-ray had findings of hyperinflated lungs with trace pleural effusion but overall increased aeration of lungs. Patients biggest complaint was of her anxiety, which she was given some ativan for. Patient was found to be at increased risk for cardiac . Cardiology recommended a LifeVest. Cardiology cleared patient from a cardiac standpoint once pulmonary status was stable. Patient is to continue home medications. Patient is to follow-up with cardiology outpatient. KOMAL VIERA DO 03/26/21 0539: Supervisory-Addendum Brief Verification & Attestation Participated in pt care: history, MDM, physical Personally performed: exam, history, MDM, supervision of care Care discussed with: Medical Student Procedures: n/a Results interpretation: Verified all documentation Verification and Attestation of Medical Student E/M Service A medical student performed and documented this service in my presence. I reviewed and verified all information documented by the medical student and made modifications to such information, when appropriate. I personally performed the physical exam and medical decision making. Komal Viera, Mar 26, 2021,05:39 HARIS CASTELLANOS Mar 25, 2021 13:45 KOMAL VIERA DO Mar 26, 2021 05:39
--- NOTE | 2021-03-25 15:29 | Progress Note - Hospitalist ---
Subjective HPI/CC On Admission Date Seen by Provider: Mar 25, 2021 Time Seen by Provider: 10:00 Subjective/Events-last exam LifeVest yet to arrive Oxygen evaluation showed no need for home oxygen Maintain on inhaled corticosteroid Anxiety treatment maintain Review of Systems General: Fatigue Objective Exam Vital Signs Vital Signs Date Time Temp Pulse Resp B/P (MAP) Pulse Ox O2 Delivery O2 Flow Rate FiO2 03/26/21 03:01 36.6 74 18 145/87 94 Room Air 03/25/21 19:00 2.00 Capillary Refill : Less Than 3 Seconds General Appearance: No Apparent Distress, WD/WN, Anxious, Chronically ill Respiratory: No Accessory Muscle Use, No Respiratory Distress, Decreased Breath Sounds Cardiovascular: Regular Rate, Rhythm Results/Procedures Lab Patient resulted labs reviewed. Imaging: Reviewed Imaging Report Assessment/Plan Assessment and Plan Assess & Plan/Chief Complaint Assessment: Nonischemic cardiomyopathy Acute respiratory distress due to wheezing Asthma Anxiety Plan: LifeVest Anxiety treatment Critical Care Critically Ill Patient Diagnosis/Problems Diagnosis/Problems (1) COPD with acute exacerbation Status: Acute (2) Acute respiratory failure with hypoxia Status: Acute (3) Takotsubo cardiomyopathy Status: Acute (4) NICM (nonischemic cardiomyopathy) Status: Acute (5) Anxiety and depression Status: Acute (6) HTN (hypertension) Status: Chronic (7) Hypothyroidism Status: Chronic LISA VIERA DO Mar 25, 2021 15:29
[2021-03-25] MEDS: SENNA W/DOCUSATE (SENOKOT S) TABLET PO SCH (20:14)
[2021-03-25] MEDS: RT--FLUTICASONE/SALMETEROL 113-14 (AIRDUO RespiCLICK) IH SCH (21:54)
[2021-03-26 06:11] LABS: BASOPHILS % (AUTO) 0 % (0-10); EOSINOPHILS % (AUTO) 0 % (0-10); HEMATOCRIT 33 % (35-52); HEMOGLOBIN 11.2 g/dL (11.5-16.0); LYMPHOCYTES # (AUTO) 0.7 10^3/uL (1.0-4.0); LYMPHOCYTES % (AUTO) 4 % (12-44); MEAN CORPUSCULAR HEMOGLOBIN 30 pg (25-34); MEAN CORPUSCULAR HGB CONC 34 g/dL (32-36); MEAN CORPUSCULAR VOLUME 87 fL (80-99); MONOCYTES # (AUTO) 0.7 10^3/uL (0.0-1.0); MONOCYTES % (AUTO) 4 % (0-12); NEUTROPHILS # (AUTO) 17.5 10^3/uL (1.8-7.8); NEUTROPHILS % (AUTO) 92 % (42-75); PLATELET COUNT 191 10^3/uL (130-400); WHITE BLOOD COUNT 19.1 10^3/uL (4.3-11.0)
[2021-03-26] MEDS: LEVOTHYROXINE 75 MCG (LEVOTHROID) TABLET PO SCH (06:21)
[2021-03-26] MEDS: PANTOPRAZOLE 40 MG (PROTONIX) TAB PO SCH (06:21)
[2021-03-26] MEDS: methylPREDNISolone 40 MG/ML (Solu-MEDROL) VIAL IV SCH ×2 (06:21→11:34)
[2021-03-26 06:22] LABS: ALBUMIN 3.2 GM/DL (3.2-4.5); POTASSIUM 4.5 MMOL/L (3.6-5.0)
[2021-03-26] MEDS: ENOXAPARIN 40 MG/0.4 ML (LOVENOX) SYR SQ SCH (06:22)
[2021-03-26 06:24] LABS: TOTAL PROTEIN 5.7 GM/DL (6.4-8.2)
[2021-03-26 06:26] LABS: BILIRUBIN,TOTAL 0.4 MG/DL (0.1-1.0)
[2021-03-26 06:28] LABS: CREATININE SERUM 0.67 MG/DL (0.60-1.30)
[2021-03-26 06:52] LABS: LYMPHOCYTES % (MANUAL) 5 %; MONOCYTES % (MANUAL) 2 %; NEUTROPHILS % (MANUAL) 93 %; RBC MORPH NORMAL
[2021-03-26] MEDS: ASPIRIN E.C. 81 MG (ECOTRIN) TAB PO SCH (08:34)
[2021-03-26] MEDS: LOSARTAN 50 MG (COZAAR) TAB PO SCH (08:34)
[2021-03-26] MEDS: LORazepam 0.5 MG (ATIVAN) TABLET PO PRN ×2 (08:39→18:40)
[2021-03-26] MEDS: SENNA W/DOCUSATE (SENOKOT S) TABLET PO SCH (08:40)
--- NOTE | 2021-03-26 09:09 | Cardiology Progress Note ---
Subjective Date Seen by Provider: Mar 26, 2021 Time Seen by Provider: 09:08 Subjective/Events-last exam Patient is laying down in bed, feeling better, still having some shortness of breath. Back to her baseline Review of Systems General: No Chills, No Night Sweats, No Fatigue, No Malaise, No Appetite, No Other HEENT: No Head Aches, No Visual Changes, No Eye Pain, No Ear Pain, No Dysphasia, No Sinus Congestion, No Post Nasal Drip, No Sore Throat, No Other Pulmonary: Dyspnea; No Cough, No Pleuritic Chest Pain, No Other Cardiovascular: No: Chest Pain, Palpitations, Orthopnea, Paroxysmal Noc. Dyspnea, Edema, Lt Headedness, Other Objective-Cardiology Exam Last Set of Vital Signs Vital Signs 03/25/21 03/26/21 19:00 07:48 Temp 36.6 Pulse 83 Resp 18 B/P (MAP) 137/81 Pulse Ox 94 O2 Delivery Room Air O2 Flow Rate 2.00 I&O Intake and Output 03/26/21 00:00 Intake Total 1680 ml Output Total 875 ml Balance 805 ml Intake Oral 1680 ml Output Urine Total 875 ml # Voids 3 # Bowel Movements 1 General: Alert, Oriented X3, Cooperative HEENT: Atraumatic, PERRLA Neck: Supple, No JVD, No Thyromegaly Lungs: Clear to Auscultation, Normal Air Movement Heart: Regular Rate, Normal S1, Normal S2, No Murmurs Abdomen: Normal Bowel Sounds, Soft, No Tenderness, No Hepatosplenomegaly, No Masses Extremities: No Clubbing, No Cyanosis, No Edema, Normal Pulses, No Tenderness/Swelling Skin: No Rashes, No Breakdown, No Significant Lesion Neuro: Normal Gait, Normal Speech, Strength at 5/5 X4 Ext, Normal Tone, Sensation Intact Psych/Mental Status: Mental Status NL, Mood NL Results Lab Laboratory Tests 03/26/21 05:57 A/P-Cardiology Admission Diagnosis Acute respiratory failure Congestive heart failure, acute left ventricular systolic dysfunction, nonischemic cardiomyopathy Coronary artery disease Hypertension Assessment/Plan Status post acute respiratory failure, acute exacerbation of COPD, CO2 retention. Patient will be managed by network desktop support specialist and medical service. EKG changes with ST elevation in the anterolateral leads, mild elevation in troponin. Does not have an acute myocardial infarction. Cardiac catheterization was carried out on March 24, 2021 showing mild coronary artery disease nonobstructive disease with left ventricular apical hypokinesia and ejection fraction 40%. Medical therapy is recommended. Has been maintained on Coreg and losartan as an outpatient which will be restarted. Coronary artery disease, cardiac catheterization on March 24, 2021 showed slow flow in the mid LAD, small vessel disease. 40 to 50% stenosis in the mid right coronary artery nonobstructive disease. Apical left ventricular hypokinesia with ejection fraction 40%, planning to evaluate 2D echo. 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 Planning to place a LifeVest for primary prevention Hypothyroidism, maintained on levothyroxine Anxiety. Hyperglycemia blood glucose level was 154. Maintained on Accu-Chek, managed by primary care physician Ericka for discharge from cardiology standpoint once her pulmonary status is stable, follow-up as an outpatient MERLIN SALES MD Mar 26, 2021 09:09
[2021-03-26] MEDS: RT--FLUTICASONE/SALMETEROL 113-14 (AIRDUO RespiCLICK) IH SCH (09:32)
[2021-03-26] MEDS ORDERED: PARO10TA3 PO (10:23)
[2021-03-26] MEDS ORDERED: BUDE10.2 IH (10:23)
--- NOTE | 2021-03-26 10:24 | Discharge Summary ---
Discharge Summary Hospital Course Was the Problem List Reviewed?: Yes Problems/Dx: (1) COPD with acute exacerbation Status: Acute (2) Acute respiratory failure with hypoxia Status: Acute (3) Takotsubo cardiomyopathy Status: Acute (4) NICM (nonischemic cardiomyopathy) Status: Acute (5) Anxiety and depression Status: Acute (6) HTN (hypertension) Status: Chronic (7) Hypothyroidism Status: Chronic Hospital Course Date of Admission: Mar 24, 2021 at 04:23 Admission Diagnosis : Family Physician/Provider: No,Local Physician Date of Discharge: 03/26/21 Discharge Diagnosis: Nonischemic cardiomyopathy requiring LifeVest, anxiety, acute exacerbation of asthma Hospital Course: Hospital course: Pt had a brief hospital course, she was admitted for acute respiratory distress and ST-elevation, had a cardiac cath which revealed no evidence of stenosis but ischemic cardiomyopathy was diagnosed. She needed a lifevest at discharge, that was arranged, she will follow-up with Dr. Pringle and Dr. Stallings cardiology and pulmonology respectively and I did refill her Symbicort and Paxil as she requested. Labs and Pending Lab Test: Laboratory Tests 03/26/21 05:57: White Blood Count 19.1H, Red Blood Count 3.80, Hemoglobin 11.2L, Hematocrit 33L, Mean Corpuscular Volume 87, Mean Corpuscular Hemoglobin 30, Mean Corpuscular Hemoglobin Concent 34, Red Cell Distribution Width 12.7, Platelet Count 191, Mean Platelet Volume 10.0, Immature Granulocyte % (Auto) 1, Neutrophils (%) (Auto) 92H, Lymphocytes (%) (Auto) 4L, Monocytes (%) (Auto) 4, Eosinophils (%) (Auto) 0, Basophils (%) (Auto) 0, Neutrophils # (Auto) 17.5H, Lymphocytes # (Auto) 0.7L, Monocytes # (Auto) 0.7, Eosinophils # (Auto) 0.0, Basophils # (Auto) 0.0, Immature Granulocyte # (Auto) 0.2H, Neutrophils % (Manual) 93, Lymphocytes % (Manual) 5, Monocytes % (Manual) 2, Blood Morphology Comment NORMAL, Sodium Level 129L, Potassium Level 4.5, Chloride Level 94L, Carbon Dioxide Level 27, Anion Gap 8, Blood Urea Nitrogen 18, Creatinine 0.67, Estimat Glomerular Filtration Rate 86, BUN/Creatinine Ratio 27, Glucose Level 141H, Calcium Level 9.0, Corrected Calcium 9.6, Total Bilirubin 0.4, Aspartate Amino Transf (AST/SGOT) 18, Alanine Aminotransferase (ALT/SGPT) 16, Alkaline Phosphatase 52, Total Protein 5.7L, Albumin 3.2 Microbiology 03/24/21 MRSA Screen - Final, Complete MRSA not isolated Home Meds Active Xanax (Alprazolam) 0.5 Mg Tablet 0.5 Mg PO Q6H PRN Prednisone 10 Mg Tab.ds.pk 10 Mg PO DAILY Take 6 tabs(60mg)daily,decrease by 1 tab(10MG)daily. Synthroid (Levothyroxine Sodium) 75 Mcg Tablet 75 Mcg PO DAILY@0630 365 Days Pantoprazole Sodium 40 Mg Tablet.dr 40 Mg PO DAILY@0700 Aspirin EC (Aspirin) 81 Mg Tablet.dr 81 Mg PO DAILY Losartan Potassium 50 Mg Tablet 50 Mg PO DAILY Carvedilol 6.25 Mg Tablet 6.25 Mg PO BID WITH MEALS Reported Paroxetine HCl 10 Mg Tablet 10 Mg PO DAILY Montelukast Sodium 10 Mg Tablet 10 Mg PO HS Symbicort 160-4.5 Mcg Inhaler (Budesonide/Formoterol Fumarate) 10.2 Gm Hfa. aer.ad 2 Puff IH BID Assessment/Pt Instructions PCP in 1 week Discharge Planning: <30 minutes discharge planning Discharge Instructions Discharge Diet: No Restrictions Activity as Tolerated: Yes Discharge Physical Examination Vital Signs Vital Signs Date Time Temp Pulse Resp B/P (MAP) Pulse Ox O2 Delivery O2 Flow Rate FiO2 03/26/21 09:32 94 Room Air 0.00 03/26/21 07:48 36.6 83 18 137/81 General Appearance: No Apparent Distress, WD/WN Respiratory: Lungs Clear, Normal Breath Sounds Cardiovascular: Regular Rate, Rhythm Neurologic/Psychiatric: Alert, Oriented x3, No Motor/Sensory Deficits, Normal Mood/Affect Allergies: Coded Allergies: No Known Drug Allergies (Unverified , 03/24/21) Discharge Summary Date of Admission Mar 24, 2021 at 04:23 Date of Discharge Discharge Date: Mar 26, 2021 Admission Diagnosis STEMI Discharge Diagnosis Assessment: Nonischemic cardiomyopathy Acute respiratory distress due to wheezing Asthma Anxiety Plan: LifeVest Anxiety treatment (1) COPD with acute exacerbation Status: Acute (2) Acute respiratory failure with hypoxia Status: Acute (3) Takotsubo cardiomyopathy Status: Acute (4) NICM (nonischemic cardiomyopathy) Status: Acute (5) Anxiety and depression Status: Acute (6) HTN (hypertension) Status: Chronic (7) Hypothyroidism Status: Chronic LISA VIERA DO Mar 26, 2021 10:24
--- NOTE | 2021-03-26 11:01 | Progress Note ---
HARIS CASTELLANOS 03/26/21 1101: Progress Note Patient is a 76 year old female with a history of COPD who presents to [facility] on 03/24 from [facility]. She was transferred via life-flight after she was found to have ST segment elevations on EKG, signs of acute respiratory failure, and acute exacerbations of COPD. She underwent emergency catheterization by Dr. Guidry and was not found to have any acute findings of myocardial infarction. The catheterization did show signs of nonischemic cardiomyopathy, with takotsubo cardiomyopathy (stress induced cardiomyopathy) being the probable cause. Patient also underwent a 2D echocardiogram which had the following findings. Left ventricle ejection fractions 25-30% with severe diffuse hypokinesis. Akinesis of the apical myocardium. Mild regurgitation of the mitral valve. Moderate to severe regurgitation of the tricuspid valve. Systolic pressure of pulmonary arteries in the range of 55-60 mm Hg. Patient was found to be COVID negative. Patient was started on methylprednisolone and fluticasone/salmeterol for her acute respiratory failure. Patient had a chest x-ray that showed hyper-inflated lungs with mild edema, with no pneumothorax or pleural effusion. Patient continued home medications on 03/24. On 03/25 patient was doing much better. Her O2 sats were stable on 2L of oxygen via nasal cannula. She no longer felt short of breath. Her repeat chest x-ray had findings of hyperinflated lungs with trace pleural effusion but overall increased aeration of lungs. Patients biggest complaint was of her anxiety, which she was given some ativan for. Patient was found to be at increased risk for cardiac . Cardiology recommended a LifeVest. Cardiology cleared patient from a cardiac standpoint once pulmonary status was stable. Patient is to continue home medications. Patient will follow up with her Cardiology doctor in [place]. Patient is having refills of her paroxetine and symbicort sent to her pharmacy in [place]. KOMAL VIERA DO 03/26/212030: Supervisory-Addendum Brief Verification & Attestation Participated in pt care: history, MDM, physical Personally performed: exam, history, MDM, supervision of care Care discussed with: Medical Student Procedures: n/a Results interpretation: Verified all documentation Verification and Attestation of Medical Student E/M Service A medical student performed and documented this service in my presence. I reviewed and verified all information documented by the medical student and made modifications to such information, when appropriate. I personally performed the physical exam and medical decision making. Komal Viera, Mar 26, 2021,20:31 HARIS CASTELLANOS Mar 26, 2021 11:01 KOMAL VIERA DO Mar 26, 2021 20:31
== END 2021-03-26 19:15 | disposition home or self-care (01) | DRG 286 ==
LOC: ICU 04:23 → 4TH 03-25 20:35
PROVIDERS: ADMIT Internal Medicine; ATTEND Internal Medicine
PROC: 4A023N7 Measurement of Cardiac Sampling and Pressure, Left Heart, Percutaneous Approach (ICD-10-PCS; principal; 2021-03-24)
PROC: B2111ZZ Fluoroscopy of Multiple Coronary Arteries using Low Osmolar Contrast (ICD-10-PCS; 2021-03-24)
PROC: B3101ZZ Fluoroscopy of Thoracic Aorta using Low Osmolar Contrast (ICD-10-PCS; 2021-03-24)
PROC: B2151ZZ Fluoroscopy of Left Heart using Low Osmolar Contrast (ICD-10-PCS; 2021-03-24)
DX: I51.81 Takotsubo syndrome (principal); J96.01 Acute respiratory failure with hypoxia; I50.21 Acute systolic (congestive) heart failure; J44.1 Chronic obstructive pulmonary disease with (acute) exacerbation; I42.8 Other cardiomyopathies; J45.901 Unspecified asthma with (acute) exacerbation; F41.9 Anxiety disorder, unspecified; F32.A Depression, unspecified; I11.0 Hypertensive heart disease with heart failure; E03.9 Hypothyroidism, unspecified; Z20.822 Contact with and (suspected) exposure to COVID-19; I27.20 Pulmonary hypertension, unspecified; I25.10 Atherosclerotic heart disease of native coronary artery without angina pectoris; R73.9 Hyperglycemia, unspecified
CPT/HCPCS: 36415; 71045; 71046; 80048; 80053; 80061; 81000; 82805; 83735; 84100; 84484; 85007; 85027; 87081; 87636; 93005; 93306; 93458; 94640; 94760; 94761